=== PATIENT | male | born 2000 | race African-American/Black ===

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

== ENCOUNTER 2020-03-27 22:38 | Emergency (ER) | payer OTHER ==
[~2020-03-27] VITALS: Ht 180.3 cm; Wt 68.0 kg
[~2020-03-27 22:38] MED LIST: IBUPROFEN 600600 M1 PO
[2020-03-28 01:02] VITALS: BP 104/62
== END 2020-03-28 01:02 | disposition home or self-care (01) ==
LOC: ER 22:38
DX: S63.502A Unspecified sprain of left wrist, initial encounter (principal); Y04.2XXA Assault by strike against or bumped into by another person, initial encounter; Y93.89 Activity, other specified; Y92.89 Other specified places as the place of occurrence of the external cause; Y99.8 Other external cause status